=== PATIENT | male | born 1965 | race African-American/Black ===

== ENCOUNTER 2020-07-12 10:47 | Inpatient (IN) | payer OTHER ==
--- NOTE | 2020-07-12 11:01 | BHS.RME ---
Substance Use & Tx History - Substance Use History Alcohol Substance amount: 1 pint vodka and six pack beer Frequency of use: Daily Substance route: Oral Date of Last Use: 07/11/20 Heroin Substance amount: 10 bags Frequency of use: Daily Substance route: Inhalation (ex: sniffing or snorting) Date of Last Use: 07/11/20 Nicotine Substance amount: 1/2 pack Frequency of use: Daily Substance route: Smoking Date of Last Use: 07/12/20 - Last Treatment Date of last treatment: 09/09-11/10/16 Treatment type: Substance Use Disorder (CAROLYN) Where was last treatment: Detox Physical/Psych/Mental Status - Behavior General Behavior: Increased activity (restlessness, agitation) Eye Contact: Normal - Cooperativeness Cooperativeness: Cooperative - Thinking Thought Processes: Tight, Logical, Goal Directed - Physical Health Problems Is patient presently having any pain?: No Does patient presently have any injuries (include location): No Does patient currently have a fever: No Is patient : No CIWA Nausea/Vomitin Muscle Tremors: 4-Moderate,w/Arms Extend Anxiety: 4-Mod. Anxious/Guarded Agitation: 4-Moderately Restless Paroxysmal Sweats: 3 Orientation: 0-Oriented Tacttile Disturbances: 0-None Auditory Disturbances: 0-None Visual Disturbances: 0-None Headache: 0-None Present CIWA-Ar Total Score: 18
[2020-07-12 11:27] VITALS: BMI 22.3
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
[2020-07-12] MEDS ORDERED: ACETAMINOPHEN 325 MG TABLET (FP) PO PRN ×2 (11:59)
[2020-07-12] MEDS ORDERED: ONDANSETRON *ODT* 4 MG TABLET SL PRN (11:59)
[2020-07-12] MEDS ORDERED: BISMUTH SUBSALICYLATE 524 MG/30 ML UD PO PRN (11:59)
[2020-07-12] MEDS ORDERED: MAG HYDROX/AL HYDROX/SIMETH 30 ML UNIT-DOSE CUP PO PRN (11:59)
[2020-07-12] MEDS ORDERED: NICOTINE POLACRILEX 2 MG GUM BUC PRN (11:59)
[2020-07-12] MEDS ORDERED: MAGNESIUM CITRATE 300 ML BOTTLE PO PRN (11:59)
[2020-07-12] MEDS ORDERED: MAGNESIUM HYDROX 2400MG/30ML ORAL SUSPENSION 30 ML CUP PO PRN (11:59)
[2020-07-12] MEDS ORDERED: MENTHOL/PHENOL 1 EACH UD MM PRN (11:59)
[2020-07-12] MEDS ORDERED: chlordiazePOXIDE HCL 25 MG CAPSULE PO PRN (12:01)
[2020-07-12] MEDS: NICOTINE 14 MG/24 HOURS TOPICAL PATCH TD SCH (12:45)
[2020-07-12] MEDS: IBUPROFEN 400 MG TABLET (FP) PO PRN (12:46)
--- NOTE | 2020-07-12 12:49 | EKG ---
Test Reason : Blood Pressure : / mmHG Vent. Rate : 059 BPM Atrial Rate : 059 BPM P-R Int : 136 ms QRS Dur : 088 ms QT Int : 408 ms P-R-T Axes : 075 063 051 degrees QTc Int : 403 ms SINUS BRADYCARDIA OTHERWISE NORMAL ECG NO PREVIOUS ECGS AVAILABLE Confirmed by Remy Alcaraz MD ([id number]) on 07/12/2020 12:48:36 PM Referred By: Confirmed By:Remy Alcaraz MD
[2020-07-12] MEDS ORDERED: METHADONE HCL 10 MG TABLET (FOR DETOX USE ONLY) PO ONE (13:00)
[2020-07-12] MEDS ORDERED: hydrOXYzine PAMOATE 25 MG CAPSULE (FP) PO SCH (14:00)
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
[2020-07-12] MEDS ORDERED: hydrOXYzine PAMOATE 25 MG CAPSULE (FP) PO PRN (15:05)
[2020-07-12 18:00] LABS: ALBUMIN 3.9 g/dl (3.4-5.0); BILIRUBIN,TOTAL 0.9 mg/dL (0.2-1); BLOOD UREA NITROGEN 10.1 mg/dL (7-18); CALCIUM 9.6 mg/dL (8.5-10.1); POTASSIUM 4.6 mmol/L (3.5-5.1); TOT PROT 7.2 g/dl (6.4-8.2)
[2020-07-12 18:01] LABS: HEMATOCRIT 41.9 % (35.4-49); HEMOGLOBIN 13.7 GM/dL (11.7-16.9); MCH 31.6 pg (25.7-33.7); MCHC 32.8 g/dl (32.0-35.9); MEAN CELL VOLUME 96.5 fl (80-96); MEAN PLT VOLUME 9.5 fl (7.5-11.1); PLATELET COUNT 206 K/MM3 (134-434); RBC 4.34 M/mm3 (4.00-5.60); RDW 13.3 % (11.9-15.9); WHITE BLOOD COUNT 5.5 K/mm3 (4.0-10.0)
[2020-07-12] MEDS: chlordiazePOXIDE HCL 25 MG CAPSULE PO SCH ×2 (18:15→22:26)
[2020-07-12] MEDS: THIAMINE HCL 100 MG TABLET (FP) PO SCH (22:26)
[2020-07-12] MEDS: MELATONIN 5 MG TABLETS PO SCH (22:26)
[2020-07-13] MEDS: chlordiazePOXIDE HCL 25 MG CAPSULE PO SCH ×4 (06:19→22:35)
[2020-07-13] MEDS ORDERED: METHADONE HCL 5 MG TABLET (FOR DETOX USE ONLY) ONE (08:40)
[2020-07-13] MEDS ORDERED: METHADONE HCL 10 MG TABLET (FOR DETOX USE ONLY) ONE (08:41)
--- NOTE | 2020-07-13 09:50 | PN ---
[facility] CIWA - CIWA Score Nausea/Vomitin-No Nausea/No Vomiting Muscle Tremors: 3 Anxiety: 2 Agitation: 2 Paroxysmal Sweats: 2 Orientation: 0-Oriented Tacttile Disturbances: 0-None Auditory Disturbances: 0-None Visual Disturbances: 0-None Headache: 0-None Present CIWA-Ar Total Score: 9 B[facility] COWS - Scale Resting Pulse: 0= [place] 80 or Below Sweatin= Chills/Flushing Restless Observation: 1= Difficult to Sit Still Pupil Size: 0= Normal to Room Light Bone or Joint Aches: 1= Mild Discomfort Runny Nose/ Eye Tearin= Nasal Congestion GI Upset > 30mins: 0= None Tremor Observation of Outstretched Hands: 1= Tremor [place], Not Seen Yawning Observation: 1= 1-2x During Session Anxiety or Irritability: 2=Irritable/Anxious Goose Flesh Skin: 3=Piloerection COWS Score: 11 [facility] Progress Note (SOAP) Subjective: sweats shakes chills body aches interrupted sleep agitation irritable Objective: 07/13/20 09:50 Vital Signs Temperature 99.5 F 07/13/20 05:25 Pulse Rate 75 07/13/20 05:25 Respiratory Rate 20 07/13/20 05:25 Blood Pressure 129/69 07/13/20 05:25 O2 Sat by Pulse Oximetry (%) 100 07/13/20 05:25 Laboratory Tests 07/12/20 07/12/20 07/12/20 11:45 11:45 11:45 WBC 5.5 RBC 4.34 Hgb 13.7 Hct 41.9 MCV 96.5 H MCH 31.6 MCHC 32.8 RDW 13.3 Plt Count 206 D MPV 9.5 Sodium 140 Potassium 4.6 Chloride 106 Carbon Dioxide 29 Anion Gap 5 L BUN 10.1 Creatinine 1.0 Est GFR (CKD-EPI)AfAm 97.77 Est GFR (CKD-EPI)NonAf 84.35 Random Glucose 85 Calcium 9.6 Total Bilirubin 0.9 AST 18 ALT 30 Alkaline Phosphatase 88 Total Protein 7.2 Albumin 3.9 Syphilis Serology Non-reactive COVID-19 (ELIAS) 07/12/20 12:30 WBC RBC Hgb Hct MCV MCH MCHC RDW Plt Count MPV Sodium Potassium Chloride Carbon Dioxide Anion Gap BUN Creatinine Est GFR (CKD-EPI)AfAm Est GFR (CKD-EPI)NonAf Random Glucose Calcium Total Bilirubin AST ALT Alkaline Phosphatase Total Protein Albumin Syphilis Serology COVID-19 (ELIAS) Not detected labs noted aaox3 ambulating no acute distress Assessment: 07/13/20 09:50 withdrawals Plan: continue detox
[2020-07-13] MEDS ORDERED: METHADONE (DETOX) 20 MG, METHADONE (DETOX) 5 MG PO ONE (10:00)
[2020-07-13] MEDS: NICOTINE 14 MG/24 HOURS TOPICAL PATCH TD SCH (10:13)
[2020-07-13] MEDS: PRENATAL VITAMINS W/ FOLIC ACID TABLET (FP) PO SCH (10:14)
[2020-07-13] MEDS: cloNIDine HCL 0.1 MG TABLET PO PRN (22:34)
[2020-07-13] MEDS: MELATONIN 5 MG TABLETS PO SCH (23:02)
[2020-07-13] MEDS: THIAMINE HCL 100 MG TABLET (FP) PO SCH (23:02)
[2020-07-14] MEDS: chlordiazePOXIDE HCL 25 MG CAPSULE PO SCH ×4 (07:36→23:45)
[2020-07-14] MEDS ORDERED: METHADONE HCL 10 MG TABLET (FOR DETOX USE ONLY) PO ONE (10:00)
[2020-07-14] MEDS: PRENATAL VITAMINS W/ FOLIC ACID TABLET (FP) PO SCH (10:37)
[2020-07-14] MEDS: cloNIDine HCL 0.1 MG TABLET PO PRN (10:37)
[2020-07-14] MEDS: NICOTINE 14 MG/24 HOURS TOPICAL PATCH TD SCH (10:38)
--- NOTE | 2020-07-14 11:46 | PN ---
[facility] CIWA - CIWA Score Nausea/Vomitin-Mild Nausea/No Vomiting Muscle Tremors: 2 Anxiety: 1-Mildly Anxious Agitation: 1-Slight > Activity Paroxysmal Sweats: 1-Minimal Palms Moist Orientation: 0-Oriented Tacttile Disturbances: 0-None Auditory Disturbances: 0-None Visual Disturbances: 0-None Headache: 1-Very Mild CIWA-Ar Total Score: 7 [facility] COWS - Scale Resting Pulse: 1= [place] 81-100 Sweatin= Chills/Flushing Restless Observation: 1= Difficult to Sit Still Pupil Size: 0= Normal to Room Light Bone or Joint Aches: 1= Mild Discomfort Runny Nose/ Eye Tearin= Nasal Congestion GI Upset > 30mins: 1= Stomach Cramp Tremor Observation of Outstretched Hands: 1= Tremor [place], Not Seen Yawning Observation: 1= 1-2x During Session Anxiety or Irritability: 1=Feels Anxious/Irritable Goose Flesh Skin: 0=Smooth Skin COWS Score: 9 [facility] Progress Note (SOAP) Subjective: pt admitted for dual detox of alcohol and opioids, no complaints today. O: Vital Signs - 24 hr 07/13/20 07/13/20 07/13/20 12:53 16:57 20:54 Temperature 98.4 F 98.2 F 98.4 F Pulse Rate 62 64 69 Respiratory 18 18 18 Rate Blood Pressure 152/85 153/88 163/84 O2 Sat by Pulse 98 98 Oximetry (%) 07/14/20 07/14/20 05:43 08:31 Temperature 99.5 F Pulse Rate 69 67 Respiratory 18 Rate Blood Pressure 172/91 H 154/88 O2 Sat by Pulse 96 Oximetry (%) Laboratory Tests 07/12/20 07/12/20 07/12/20 11:45 11:45 11:45 WBC 5.5 RBC 4.34 Hgb 13.7 Hct 41.9 MCV 96.5 H MCH 31.6 MCHC 32.8 RDW 13.3 Plt Count 206 D MPV 9.5 Sodium 140 Potassium 4.6 Chloride 106 Carbon Dioxide 29 Anion Gap 5 L BUN 10.1 Creatinine 1.0 Est GFR (CKD-EPI)AfAm 97.77 Est GFR (CKD-EPI)NonAf 84.35 Random Glucose 85 Calcium 9.6 Total Bilirubin 0.9 AST 18 ALT 30 Alkaline Phosphatase 88 Total Protein 7.2 Albumin 3.9 Syphilis Serology Non-reactive COVID-19 (ELIAS) 07/12/20 12:30 WBC RBC Hgb Hct MCV MCH MCHC RDW Plt Count MPV Sodium Potassium Chloride Carbon Dioxide Anion Gap BUN Creatinine Est GFR (CKD-EPI)AfAm Est GFR (CKD-EPI)NonAf Random Glucose Calcium Total Bilirubin AST ALT Alkaline Phosphatase Total Protein Albumin Syphilis Serology COVID-19 (ELIAS) Not detected a/p: OUD- methadone detox protocol AUD- alcohol detox protocol pt without complaints. SBP elevated- monitor may be due to withdrawal
[2020-07-14] MEDS: MELATONIN 5 MG TABLETS PO SCH (23:45)
[2020-07-14] MEDS: THIAMINE HCL 100 MG TABLET (FP) PO SCH (23:45)
[2020-07-15] MEDS ORDERED: chlordiazePOXIDE HCL 10 MG CAPSULE PO PRN
[2020-07-15] MEDS: METHOCARBAMOL 500 MG TABLET PO PRN (01:36)
[2020-07-15] MEDS: IBUPROFEN 400 MG TABLET (FP) PO PRN (01:36)
--- NOTE | 2020-07-15 01:44 | PN ---
[facility] Progress Note Note: Patient complained that he cannot sleep Vital Signs Temperature 97.3 F L 07/14/20 20:55 Pulse Rate 61 07/14/20 20:55 Respiratory Rate 16 07/14/20 20:55 Blood Pressure 141/84 07/14/20 20:55 O2 Sat by Pulse Oximetry (%) 96 07/14/20 20:55 Laboratory Last Values WBC 5.5 K/mm3 (4.0-10.0) 07/12/20 11:45 RBC 4.34 M/mm3 (4.00-5.60) 07/12/20 11:45 Hgb 13.7 GM/dL (11.7-16.9) 07/12/20 11:45 Hct 41.9 % (35.4-49) 07/12/20 11:45 MCV 96.5 fl (80-96) H 07/12/20 11:45 MCH 31.6 pg (25.7-33.7) 07/12/20 11:45 MCHC 32.8 g/dl (32.0-35.9) 07/12/20 11:45 RDW 13.3 % (11.9-15.9) 07/12/20 11:45 Plt Count 206 K/MM3 (134-434) D 07/12/20 11:45 MPV 9.5 fl (7.5-11.1) 07/12/20 11:45 Sodium 140 mmol/L (136-145) 07/12/20 11:45 Potassium 4.6 mmol/L (3.5-5.1) 07/12/20 11:45 Chloride 106 mmol/L (98-107) 07/12/20 11:45 Carbon Dioxide 29 mmol/L (21-32) 07/12/20 11:45 Anion Gap 5 MMOL/L (8-16) L 07/12/20 11:45 BUN 10.1 mg/dL (7-18) 07/12/20 11:45 Creatinine 1.0 mg/dL (0.55-1.3) 07/12/20 11:45 Est GFR (CKD-EPI)AfAm 97.77 07/12/20 11:45 Est GFR (CKD-EPI)NonAf 84.35 07/12/20 11:45 Random Glucose 85 mg/dL (74-106) 07/12/20 11:45 Calcium 9.6 mg/dL (8.5-10.1) 07/12/20 11:45 Total Bilirubin 0.9 mg/dL (0.2-1) 07/12/20 11:45 AST 18 U/L (15-37) 07/12/20 11:45 ALT 30 U/L (13-61) 07/12/20 11:45 Alkaline Phosphatase 88 U/L (45-117) 07/12/20 11:45 Total Protein 7.2 g/dl (6.4-8.2) 07/12/20 11:45 Albumin 3.9 g/dl (3.4-5.0) 07/12/20 11:45 Syphilis Serology Non-reactive (NONREACTIVE) 07/12/20 11:45 COVID-19 (ELIAS) Not detected (Not Detected) 07/12/20 12:30 Action: Melatonin 10mg tablet oral ordered
[2020-07-15] MEDS ORDERED: MELATONIN 5 MG TABLETS PO ONE (01:50)
[2020-07-15] MEDS: chlordiazePOXIDE HCL 10 MG CAPSULE PO SCH ×4 (06:49→23:10)
[2020-07-15] MEDS ORDERED: METHADONE (DETOX) 10 MG, METHADONE (DETOX) 5 MG PO ONE (10:00)
[2020-07-15] MEDS ORDERED: METHADONE HCL 5 MG TABLET (FOR DETOX USE ONLY) ONE (10:03)
[2020-07-15] MEDS ORDERED: METHADONE HCL 10 MG TABLET (FOR DETOX USE ONLY) ONE (10:03)
--- NOTE | 2020-07-15 10:57 | PN ---
[facility] CIWA - CIWA Score Nausea/Vomitin-No Nausea/No Vomiting Muscle Tremors: 2 Anxiety: 2 Agitation: 2 Paroxysmal Sweats: 2 Orientation: 0-Oriented Tacttile Disturbances: 0-None Auditory Disturbances: 2-Mild Harshness/Frighten Visual Disturbances: 0-None Headache: 0-None Present CIWA-Ar Total Score: 10 S COWS - Scale Resting Pulse: 0= [place] 80 or Below Sweatin= Chills/Flushing Restless Observation: 1= Difficult to Sit Still Pupil Size: 0= Normal to Room Light Bone or Joint Aches: 2= Severe Diffuse Aches Runny Nose/ Eye Tearin= None GI Upset > 30mins: 0= None Tremor Observation of Outstretched Hands: 2= Slight Tremor Visible Yawning Observation: 0= None Anxiety or Irritability: 2=Irritable/Anxious Goose Flesh Skin: 0=Smooth Skin COWS Score: 8 [facility] Progress Note (SOAP) Subjective: Complaints of sweats,tremors, anxiety, body aches and noise sensitivity. Objective: 07/15/20 10:57 Vital Signs 07/15/20 07/15/20 06:00 09:17 Temperature 98.2 F 97.7 F Pulse Rate 58 L 63 Respiratory 20 18 Rate Blood Pressure 180/90 H 148/77 O2 Sat by Pulse 95 95 Oximetry (%) Laboratory Last Values WBC 5.5 K/mm3 (4.0-10.0) 07/12/20 11:45 RBC 4.34 M/mm3 (4.00-5.60) 07/12/20 11:45 Hgb 13.7 GM/dL (11.7-16.9) 07/12/20 11:45 Hct 41.9 % (35.4-49) 07/12/20 11:45 MCV 96.5 fl (80-96) H 07/12/20 11:45 MCH 31.6 pg (25.7-33.7) 07/12/20 11:45 MCHC 32.8 g/dl (32.0-35.9) 07/12/20 11:45 RDW 13.3 % (11.9-15.9) 07/12/20 11:45 Plt Count 206 K/MM3 (134-434) D 07/12/20 11:45 MPV 9.5 fl (7.5-11.1) 07/12/20 11:45 Sodium 140 mmol/L (136-145) 07/12/20 11:45 Potassium 4.6 mmol/L (3.5-5.1) 07/12/20 11:45 Chloride 106 mmol/L (98-107) 07/12/20 11:45 Carbon Dioxide 29 mmol/L (21-32) 07/12/20 11:45 Anion Gap 5 MMOL/L (8-16) L 07/12/20 11:45 BUN 10.1 mg/dL (7-18) 07/12/20 11:45 Creatinine 1.0 mg/dL (0.55-1.3) 07/12/20 11:45 Est GFR (CKD-EPI)AfAm 97.77 07/12/20 11:45 Est GFR (CKD-EPI)NonAf 84.35 07/12/20 11:45 Random Glucose 85 mg/dL (74-106) 07/12/20 11:45 Calcium 9.6 mg/dL (8.5-10.1) 07/12/20 11:45 Total Bilirubin 0.9 mg/dL (0.2-1) 07/12/20 11:45 AST 18 U/L (15-37) 07/12/20 11:45 ALT 30 U/L (13-61) 07/12/20 11:45 Alkaline Phosphatase 88 U/L (45-117) 07/12/20 11:45 Total Protein 7.2 g/dl (6.4-8.2) 07/12/20 11:45 Albumin 3.9 g/dl (3.4-5.0) 07/12/20 11:45 Syphilis Serology Non-reactive (NONREACTIVE) 07/12/20 11:45 COVID-19 (ELIAS) Not detected (Not Detected) 07/12/20 12:30 Labs noted. Assessment: 07/15/20 10:57 Alert and oriented x 3, in no acute respiratory distress. Full ROM, ambulating in the unit without assistance. Withdrawal symptoms. Plan: Continue detox protocol.
[2020-07-15] MEDS: NICOTINE 14 MG/24 HOURS TOPICAL PATCH TD SCH (14:35)
[2020-07-15] MEDS: PRENATAL VITAMINS W/ FOLIC ACID TABLET (FP) PO SCH (14:36)
[2020-07-15] MEDS: MELATONIN 5 MG TABLETS PO SCH (23:00)
[2020-07-15] MEDS: THIAMINE HCL 100 MG TABLET (FP) PO SCH (23:00)
[2020-07-16] MEDS: chlordiazePOXIDE HCL 10 MG CAPSULE PO SCH ×2 (06:55→18:00)
[2020-07-16] MEDS ORDERED: METHADONE HCL 10 MG TABLET (FOR DETOX USE ONLY) PO ONE (10:00)
[2020-07-16] MEDS: PRENATAL VITAMINS W/ FOLIC ACID TABLET (FP) PO SCH (11:00)
[2020-07-16] MEDS: NICOTINE 14 MG/24 HOURS TOPICAL PATCH TD SCH (11:00)
--- NOTE | 2020-07-16 12:47 | PN ---
[facility] CIWA - CIWA Score Nausea/Vomitin-No Nausea/No Vomiting Muscle Tremors: 2 Anxiety: 2 Agitation: 0-Normal Activity Paroxysmal Sweats: 1-Minimal Palms Moist Orientation: 0-Oriented Tacttile Disturbances: 0-None Auditory Disturbances: 0-None Visual Disturbances: 0-None Headache: 0-None Present CIWA-Ar Total Score: 5 S COWS - Scale Resting Pulse: 1= [place] 81-100 Sweatin= No chills or Flushing Restless Observation: 0= Sits Still Pupil Size: 0= Normal to Room Light Bone or Joint Aches: 1= Mild Discomfort Runny Nose/ Eye Tearin= None GI Upset > 30mins: 0= None Tremor Observation of Outstretched Hands: 2= Slight Tremor Visible Yawning Observation: 0= None Anxiety or Irritability: 1=Feels Anxious/Irritable Goose Flesh Skin: 0=Smooth Skin COWS Score: 5 [facility] Progress Note (SOAP) Subjective: Complaints of mild anxiety, tremors, sweats and irritability. Objective: 07/16/20 12:45 Vital Signs 07/16/20 07/16/20 05:15 09:14 Temperature 98.1 F 98.6 F Pulse Rate 72 116 H Respiratory 16 16 Rate Blood Pressure 139/85 146/99 O2 Sat by Pulse 98 Oximetry (%) Laboratory Last Values WBC 5.5 K/mm3 (4.0-10.0) 07/12/20 11:45 RBC 4.34 M/mm3 (4.00-5.60) 07/12/20 11:45 Hgb 13.7 GM/dL (11.7-16.9) 07/12/20 11:45 Hct 41.9 % (35.4-49) 07/12/20 11:45 MCV 96.5 fl (80-96) H 07/12/20 11:45 MCH 31.6 pg (25.7-33.7) 07/12/20 11:45 MCHC 32.8 g/dl (32.0-35.9) 07/12/20 11:45 RDW 13.3 % (11.9-15.9) 07/12/20 11:45 Plt Count 206 K/MM3 (134-434) D 07/12/20 11:45 MPV 9.5 fl (7.5-11.1) 07/12/20 11:45 Sodium 140 mmol/L (136-145) 07/12/20 11:45 Potassium 4.6 mmol/L (3.5-5.1) 07/12/20 11:45 Chloride 106 mmol/L (98-107) 07/12/20 11:45 Carbon Dioxide 29 mmol/L (21-32) 07/12/20 11:45 Anion Gap 5 MMOL/L (8-16) L 07/12/20 11:45 BUN 10.1 mg/dL (7-18) 07/12/20 11:45 Creatinine 1.0 mg/dL (0.55-1.3) 07/12/20 11:45 Est GFR (CKD-EPI)AfAm 97.77 07/12/20 11:45 Est GFR (CKD-EPI)NonAf 84.35 07/12/20 11:45 Random Glucose 85 mg/dL (74-106) 07/12/20 11:45 Calcium 9.6 mg/dL (8.5-10.1) 07/12/20 11:45 Total Bilirubin 0.9 mg/dL (0.2-1) 07/12/20 11:45 AST 18 U/L (15-37) 07/12/20 11:45 ALT 30 U/L (13-61) 07/12/20 11:45 Alkaline Phosphatase 88 U/L (45-117) 07/12/20 11:45 Total Protein 7.2 g/dl (6.4-8.2) 07/12/20 11:45 Albumin 3.9 g/dl (3.4-5.0) 07/12/20 11:45 Syphilis Serology Non-reactive (NONREACTIVE) 07/12/20 11:45 COVID-19 (ELIAS) Not detected (Not Detected) 07/12/20 12:30 Labs noted. Assessment: 07/16/20 12:45 Patient was seen and examined at bedside. Alert and oriented x 3, in no acute respiratory distress. Full ROM, ambulatory without assistance. Mild withdrawal symptoms. For discharge in AM Plan: Continue detox protocol. Discharge in AM.
[2020-07-16] MEDS: THIAMINE HCL 100 MG TABLET (FP) PO SCH (22:17)
[2020-07-16] MEDS: MELATONIN 5 MG TABLETS PO SCH (22:17)
[2020-07-16] MEDS: METHOCARBAMOL 500 MG TABLET PO PRN (22:26)
[2020-07-16] MEDS: IBUPROFEN 400 MG TABLET (FP) PO PRN (22:27)
[2020-07-17] MEDS ORDERED: chlordiazePOXIDE HCL 10 MG CAPSULE PO ONE (05:00)
[2020-07-17] MEDS ORDERED: METHADONE HCL 5 MG TABLET (FOR DETOX USE ONLY) PO ONE (06:00)
[2020-07-17 09:26] VITALS: BP 111/72; PULSE 73; TEMP 97.5
[2020-07-17] MEDS: PRENATAL VITAMINS W/ FOLIC ACID TABLET (FP) PO SCH (10:08)
[2020-07-17] MEDS: NICOTINE 14 MG/24 HOURS TOPICAL PATCH TD SCH (10:08)
--- NOTE | 2020-07-17 13:18 | DS ---
[facility] Detox Discharge Summary Admission Date: 07/12/20 Discharge Date: 07/17/20 - History Present History: Alcohol Dependence, Opioid Dependence Additional Comments: Pt is medically cleared and discharged to [facility]. Pt completed the detox protocol. Pt is encouraged to follow through with the Rehab protocol which he verbalized understanding. Pt is AOX3 and in no acute respiratory, Full ROM, and ambulatory. Pertinent Past History: h/o alcohol and heroin use disorder. - Physical Exam Results Vital Signs: Vital Signs Temperature 97.5 F L 07/17/20 08:37 Pulse Rate 73 07/17/20 08:37 Respiratory Rate 19 07/17/20 08:37 Blood Pressure 111/72 07/17/20 08:37 O2 Sat by Pulse Oximetry (%) 97 07/16/20 20:56 Vital Signs 07/17/20 07/17/20 05:35 08:37 Temperature 97.7 F 97.5 F L Pulse Rate 72 73 Respiratory 18 19 Rate Blood Pressure 118/73 111/72 Laboratory Last Values WBC 5.5 K/mm3 (4.0-10.0) 07/12/20 11:45 RBC 4.34 M/mm3 (4.00-5.60) 07/12/20 11:45 Hgb 13.7 GM/dL (11.7-16.9) 07/12/20 11:45 Hct 41.9 % (35.4-49) 07/12/20 11:45 MCV 96.5 fl (80-96) H 07/12/20 11:45 MCH 31.6 pg (25.7-33.7) 07/12/20 11:45 MCHC 32.8 g/dl (32.0-35.9) 07/12/20 11:45 RDW 13.3 % (11.9-15.9) 07/12/20 11:45 Plt Count 206 K/MM3 (134-434) D 07/12/20 11:45 MPV 9.5 fl (7.5-11.1) 07/12/20 11:45 Sodium 140 mmol/L (136-145) 07/12/20 11:45 Potassium 4.6 mmol/L (3.5-5.1) 07/12/20 11:45 Chloride 106 mmol/L (98-107) 07/12/20 11:45 Carbon Dioxide 29 mmol/L (21-32) 07/12/20 11:45 Anion Gap 5 MMOL/L (8-16) L 07/12/20 11:45 BUN 10.1 mg/dL (7-18) 07/12/20 11:45 Creatinine 1.0 mg/dL (0.55-1.3) 07/12/20 11:45 Est GFR (CKD-EPI)AfAm 97.77 07/12/20 11:45 Est GFR (CKD-EPI)NonAf 84.35 07/12/20 11:45 Random Glucose 85 mg/dL (74-106) 07/12/20 11:45 Calcium 9.6 mg/dL (8.5-10.1) 07/12/20 11:45 Total Bilirubin 0.9 mg/dL (0.2-1) 07/12/20 11:45 AST 18 U/L (15-37) 07/12/20 11:45 ALT 30 U/L (13-61) 07/12/20 11:45 Alkaline Phosphatase 88 U/L (45-117) 07/12/20 11:45 Total Protein 7.2 g/dl (6.4-8.2) 07/12/20 11:45 Albumin 3.9 g/dl (3.4-5.0) 07/12/20 11:45 Syphilis Serology Non-reactive (NONREACTIVE) 07/12/20 11:45 COVID-19 (ELIAS) Not detected (Not Detected) 07/12/20 12:30 Labs noted. Pertinent Admission Physical Exam Findings: withdrawal symptoms. - Treatment Hospital Course: Detox Protocol Followed, Detoxed Safely, Responded well, Discharged Condition Good, Rehab Referral Accepted Patient has Accepted a Rehab Referral to: [facility] - Medication Discharge Medications: Ambulatory Orders NK [No Known Home Medication] 07/29/14 - Diagnosis (1) Alcohol dependence with uncomplicated withdrawal Current Visit: Yes Status: Acute (2) Opioid dependence with withdrawal Current Visit: Yes Status: Acute (3) Alcohol dependence Current Visit: No Status: Acute (4) Opioid dependence Current Visit: No Status: Acute (5) Nicotine dependence Current Visit: No Status: Chronic Qualifiers: Nicotine product type: cigarettes Substance use status: uncomplicated Qualified Code(s): F17.210 - Nicotine dependence, cigarettes, uncomplicated - AMA Did Patient Leave Against Medical Advice: No
== END 2020-07-17 13:07 | disposition other institution (70) | DRG 773 ==
LOC: YASAS 10:47 → Y6N 11:28
PROVIDERS: ADMIT Allergy & Immunology; ATTEND Allergy & Immunology
PROC: HZ2ZZZZ Detoxification Services for Substance Abuse Treatment (ICD-10-PCS; principal; 2020-07-12)
DX: F10.230 Alcohol dependence with withdrawal, uncomplicated (principal); F11.23 Opioid dependence with withdrawal; F14.20 Cocaine dependence, uncomplicated; F17.210 Nicotine dependence, cigarettes, uncomplicated; F19.282 Other psychoactive substance dependence with psychoactive substance-induced sleep disorder; F32.9 Major depressive disorder, single episode, unspecified; Z86.19 Personal history of other infectious and parasitic diseases; Z98.890 Other specified postprocedural states; Z87.828 Personal history of other (healed) physical injury and trauma; Z91.018 Allergy to other foods; Z56.0 Unemployment, unspecified; Z59.0 Homelessness
CPT/HCPCS: 36415; 71046-TC-FY; 80053; 85027; 86780; 93005; 93010; J0735; Q0162; U0003

== ENCOUNTER 2020-07-17 13:18 | Inpatient (IN) | payer OTHER ==
--- NOTE | 2020-07-17 13:28 | DS ---
[facility] Rehab Discharge Summary - [facility] Rehab Discharge Summary Admission Date: 07/17/20 Discharge Date: 07/17/20 - Medication Discharge Medications: Ambulatory Orders NK [No Known Home Medication] 07/29/14 - Discharge Instructions Diet, activity, other medical instructions: Diet: Activity: Other medical instructions:
[2020-07-17] MEDS ORDERED: IBUPROFEN 400 MG TABLET (FP) PO PRN (13:30)
[2020-07-17] MEDS ORDERED: NICOTINE POLACRILEX 2 MG GUM BUC PRN (13:30)
[2020-07-17] MEDS ORDERED: LOPERAMIDE HCL 2 MG CAPSULE PO PRN (13:30)
[2020-07-17] MEDS ORDERED: MENTHOL/PHENOL 1 EACH UD MM PRN (13:30)
[2020-07-17] MEDS ORDERED: MAGNESIUM CITRATE 300 ML BOTTLE PO PRN (13:30)
[2020-07-17] MEDS ORDERED: P-EPHED 60MG/TRIPROLIDI 2.5MG TABLET PO PRN (13:30)
[2020-07-17] MEDS ORDERED: MAG HYDROX/AL HYDROX/SIMETH 30 ML UNIT-DOSE CUP PO PRN (13:30)
[2020-07-17] MEDS ORDERED: MAGNESIUM HYDROX 2400MG/30ML ORAL SUSPENSION 30 ML CUP PO PRN (13:30)
[2020-07-17] MEDS ORDERED: ACETAMINOPHEN 325 MG TABLET (FP) PO PRN (13:30)
[2020-07-17] MEDS ORDERED: guaiFENesin 200 MG/10 ML 10 ML UNIT-DOSE CUPS PO PRN (13:30)
--- NOTE | 2020-07-17 13:30 | HP ---
[facility] Rehab Assess/Revision - Admission History Admitted to Rehab from: [facility] [place] Date of Admission to Rehab: 07/17/2020 - Findings Detox History & Physical reviewed: Yes Concur with findings: Yes Inpatient Rehab Admission - Rehab Decision to Admit Inpatient rehab admission?: Yes - Initial Determination Are CD services needed?: Yes Free of communicable disease: Yes Not in need of hospitalization: Yes - Rehab Admission Criteria Previous failed treatment: Yes Poor recovery environment: Yes Comorbidities: No Lacks judgement: No Patient is meeting Inpatient Rehab admission criteria:: Yes
[2020-07-17] MEDS: THIAMINE HCL 100 MG TABLET (FP) PO SCH (21:21)
[2020-07-17] MEDS: MELATONIN 5 MG TABLETS PO SCH (21:21)
[2020-07-18] MEDS: hydrOXYzine PAMOATE 25 MG CAPSULE (FP) PO PRN ×2 (01:41→21:07)
[2020-07-18] MEDS: PRENATAL VITAMINS W/ FOLIC ACID TABLET (FP) PO SCH (09:35)
[2020-07-18] MEDS: NICOTINE 14 MG/24 HOURS TOPICAL PATCH TD SCH (09:36)
[2020-07-18] MEDS: MELATONIN 5 MG TABLETS PO SCH (21:05)
[2020-07-18] MEDS: THIAMINE HCL 100 MG TABLET (FP) PO SCH (21:05)
[2020-07-19 06:40] VITALS: BP 121/77; PULSE 66; TEMP 98
[2020-07-19] MEDS ORDERED: METHOCARBAMOL 500 MG TABLET PO SCH (10:00)
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
[2020-07-19] MEDS: PRENATAL VITAMINS W/ FOLIC ACID TABLET (FP) PO SCH (10:25)
[2020-07-19] MEDS: NICOTINE 14 MG/24 HOURS TOPICAL PATCH TD SCH (10:25)
== END 2020-07-19 10:00 | disposition home or self-care (01) | DRG 772 ==
LOC: YASAS 13:18 → Y3W 13:19
PROVIDERS: ADMIT Allergy & Immunology; ATTEND Allergy & Immunology
PROC: HZ42ZZZ Group Counseling for Substance Abuse Treatment, Cognitive-Behavioral (ICD-10-PCS; principal; 2020-07-17)
DX: F10.20 Alcohol dependence, uncomplicated (principal); F11.20 Opioid dependence, uncomplicated; F14.20 Cocaine dependence, uncomplicated; F32.9 Major depressive disorder, single episode, unspecified; Z87.828 Personal history of other (healed) physical injury and trauma; Z91.018 Allergy to other foods; Z59.0 Homelessness

== ENCOUNTER 2023-04-20 08:21 | Inpatient (IN) | payer OTHER ==
[2023-04-20 09:14] VITALS: BMI 25.1
[2023-04-20] MEDS ORDERED: IBUPROFEN 600 MG TABLET (FP) PO PRN (09:44)
[2023-04-20] MEDS ORDERED: NALOXONE HCL 0.4 MG/ML VIAL IM PRN (09:44)
[2023-04-20] MEDS ORDERED: MELATONIN 5 MG TABLETS PO PRN (09:44)
[2023-04-20] MEDS ORDERED: P-EPHED 60MG/TRIPROLIDI 2.5MG TABLET PO PRN (09:44)
[2023-04-20] MEDS ORDERED: MAG HYDROX/AL HYDROX/SIMETH 30 ML UNIT-DOSE CUP PO PRN (09:44)
[2023-04-20] MEDS ORDERED: DICYCLOMINE HCL 10 MG CAPSULE PO PRN (09:44)
[2023-04-20] MEDS ORDERED: MAGNESIUM HYDROX 2400MG/30ML ORAL SUSPENSION 30 ML CUP PO PRN (09:44)
[2023-04-20] MEDS ORDERED: BENZOCAINE/MENTHOL (CHLORASEPTIC ) LOZENGE MM PRN (09:44)
[2023-04-20] MEDS ORDERED: BENZONATATE 200 MG CAPSULE PO PRN (09:44)
[2023-04-20] MEDS ORDERED: BISMUTH SUBSALICYLATE 524 MG/30 ML PO PRN (09:44)
[2023-04-20] MEDS ORDERED: guaiFENesin 600 MG TABLET.ER (FP) PO PRN (09:44)
[2023-04-20] MEDS ORDERED: METHOCARBAMOL 500 MG TABLET PO PRN (09:44)
[2023-04-20] MEDS ORDERED: ONDANSETRON *ODT* 4 MG TABLET SL PRN (09:44)
[2023-04-20] MEDS ORDERED: NICOTINE 7 MG/24 HOURS TOPICAL PATCH TD PRN (09:44)
[2023-04-20] MEDS ORDERED: LOPERAMIDE HCL 2 MG CAPSULE PO PRN (09:44)
[2023-04-20] MEDS ORDERED: ACETAMINOPHEN 325 MG TABLET (FP) PO PRN (09:44)
[2023-04-20] MEDS ORDERED: IBUPROFEN 400 MG TABLET (FP) PO PRN (09:44)
[2023-04-20] MEDS ORDERED: NICOTINE POLACRILEX 2 MG GUM BUC PRN (09:44)
[2023-04-20] MEDS ORDERED: NALOXONE HCL (KLOXXADO) 8 MG SPRAY NS PRN (09:44)
[2023-04-20] MEDS ORDERED: hydrOXYzine PAMOATE 25 MG CAPSULE (FP) PO PRN (09:44)
[2023-04-20] MEDS ORDERED: POLYETHYLENE GLYCOL (HEALTHYLAX) 3350 17 GM PACKET PO PRN (09:44)
[2023-04-20] MEDS: PRENATAL VITAMINS W/ FOLIC ACID TABLET (FP) PO SCH (10:58)
[2023-04-20] MEDS: VITAMINS A AND D TOPICAL OINTMENT 60 GM TUBE TP SCH ×2 (15:02→19:59)
[2023-04-20] MEDS: THIAMINE HCL 100 MG TABLET (FP) PO SCH (22:15)
[2023-04-21] MEDS: VITAMINS A AND D TOPICAL OINTMENT 60 GM TUBE TP SCH ×5 (04:23→23:27)
[2023-04-21] MEDS: PRENATAL VITAMINS W/ FOLIC ACID TABLET (FP) PO SCH (10:09)
[2023-04-21] MEDS ORDERED: amLODIPine BESYLATE 5 MG TABLET (FP) PO SCH (12:30)
[2023-04-21] MEDS: THIAMINE HCL 100 MG TABLET (FP) PO SCH (22:49)
[2023-04-22 06:34] VITALS: RESP 18
[2023-04-22] MEDS: VITAMINS A AND D TOPICAL OINTMENT 60 GM TUBE TP SCH (07:50)
[2023-04-22 09:09] VITALS: BP 152/94; PULSE 97; TEMP 98.9
[2023-04-22] MEDS ORDERED: amLODIPine BESYLATE 10 MG TABLET (FP) PO SCH (10:00)
== END 2023-04-22 10:01 | disposition other institution (70) | DRG 773 ==
LOC: YASAS 08:21 → Y6N 10:01
PROVIDERS: ADMIT Allergy & Immunology; ATTEND Surgery
PROC: HZ2ZZZZ Detoxification Services for Substance Abuse Treatment (ICD-10-PCS; principal; 2023-04-20)
DX: F11.23 Opioid dependence with withdrawal (principal); F10.230 Alcohol dependence with withdrawal, uncomplicated; F14.20 Cocaine dependence, uncomplicated; F12.20 Cannabis dependence, uncomplicated; F17.210 Nicotine dependence, cigarettes, uncomplicated; F19.282 Other psychoactive substance dependence with psychoactive substance-induced sleep disorder; I10 Essential (primary) hypertension; Z28.310 Unvaccinated for COVID-19; Z28.9 Immunization not carried out for unspecified reason
CPT/HCPCS: 87811; C9803-CS; U0003; U0005

== ENCOUNTER 2023-07-10 15:42 | Inpatient (IN) | payer OTHER ==
[2023-07-10 17:11] VITALS: BMI 23.3
[2023-07-10] MEDS ORDERED: BENZONATATE 200 MG CAPSULE PO PRN (18:50)
[2023-07-10] MEDS ORDERED: P-EPHED 60MG/TRIPROLIDI 2.5MG TABLET PO PRN (18:50)
[2023-07-10] MEDS ORDERED: ACETAMINOPHEN 325 MG TABLET (FP) PO PRN (18:50)
[2023-07-10] MEDS ORDERED: DICYCLOMINE HCL 10 MG CAPSULE PO PRN (18:50)
[2023-07-10] MEDS ORDERED: NALOXONE HCL (KLOXXADO) 8 MG SPRAY NS PRN (18:50)
[2023-07-10] MEDS ORDERED: LOPERAMIDE HCL 2 MG CAPSULE PO PRN (18:50)
[2023-07-10] MEDS ORDERED: hydrOXYzine PAMOATE 25 MG CAPSULE (FP) PO PRN (18:50)
[2023-07-10] MEDS ORDERED: BENZOCAINE/MENTHOL (CHLORASEPTIC ) LOZENGE MM PRN (18:50)
[2023-07-10] MEDS ORDERED: POLYETHYLENE GLYCOL (HEALTHYLAX) 3350 17 GM PACKET PO PRN (18:50)
[2023-07-10] MEDS ORDERED: BISMUTH SUBSALICYLATE 524 MG/30 ML PO PRN (18:50)
[2023-07-10] MEDS ORDERED: NICOTINE POLACRILEX 2 MG GUM BUC PRN (18:50)
[2023-07-10] MEDS ORDERED: MAG HYDROX/AL HYDROX/SIMETH 30 ML UNIT-DOSE CUP PO PRN (18:50)
[2023-07-10] MEDS ORDERED: guaiFENesin 600 MG TABLET.ER (FP) PO PRN (18:50)
[2023-07-10] MEDS ORDERED: IBUPROFEN 400 MG TABLET (FP) PO PRN (18:50)
[2023-07-10] MEDS ORDERED: IBUPROFEN 600 MG TABLET (FP) PO PRN (18:50)
[2023-07-10] MEDS ORDERED: MAGNESIUM HYDROX 2400MG/30ML ORAL SUSPENSION 30 ML CUP PO PRN (18:50)
[2023-07-10] MEDS ORDERED: NALOXONE HCL 0.4 MG/ML VIAL IM PRN (18:50)
[2023-07-10] MEDS ORDERED: ONDANSETRON *ODT* 4 MG TABLET SL PRN (18:50)
[2023-07-10] MEDS: THIAMINE HCL 100 MG TABLET (FP) PO SCH (22:50)
[2023-07-10] MEDS: MELATONIN 5 MG TABLETS PO SCH (22:52)
[2023-07-11] MEDS ORDERED: methaDONE HCL 10 MG TABLET (FOR DETOX USE ONLY) PO ONE ×2 (09:02→10:00)
[2023-07-11] MEDS ORDERED: diazePAM 5 MG TABLET PO PRN (09:03)
[2023-07-11] MEDS: amLODIPine BESYLATE 10 MG TABLET (FP) PO SCH (10:33)
[2023-07-11] MEDS: PRENATAL VITAMINS W/ FOLIC ACID TABLET (FP) PO SCH (10:33)
[2023-07-11] MEDS: diazePAM 5 MG TABLET PO SCH ×3 (10:34→23:10)
[2023-07-11 15:18] LABS: POTASSIUM 4.3 mmol/L (3.5-5.1)
[2023-07-11 15:20] LABS: CALCIUM 8.7 mg/dL (8.5-10.1)
[2023-07-11 15:21] LABS: ALBUMIN 3.3 g/dl (3.4-5.0); BLOOD UREA NITROGEN 9.5 mg/dL (7-18)
[2023-07-11 15:22] LABS: HEMATOCRIT 40.5 % (35.4-49); HEMOGLOBIN 13.7 GM/dL (11.7-16.9); MCH 31.7 pg (25.7-33.7); MCHC 33.7 g/dl (32.0-35.9); MEAN CELL VOLUME 93.9 fl (80-96); MEAN PLT VOLUME 9.1 fl (7.5-11.1); PLATELET COUNT 193 10^3/uL (134-434); RBC 4.31 M/mm3 (4.00-5.60); RDW 13.1 % (11.9-15.9); WHITE BLOOD COUNT 6.4 K/mm3 (4.0-10.0)
[2023-07-11 15:25] LABS: BILIRUBIN,TOTAL 0.5 mg/dL (0.2-1); TOT PROT 6.2 g/dl (6.4-8.2)
[2023-07-11] MEDS: cloNIDine HCL 0.1 MG TABLET PO PRN ×2 (17:47→23:07)
[2023-07-11] MEDS: MELATONIN 5 MG TABLETS PO SCH (23:07)
[2023-07-11] MEDS: THIAMINE HCL 100 MG TABLET (FP) PO SCH (23:09)
[2023-07-11] MEDS: METHOCARBAMOL 500 MG TABLET PO PRN (23:09)
[2023-07-12] MEDS: diazePAM 5 MG TABLET PO SCH ×4 (05:58→22:50)
[2023-07-12] MEDS: PRENATAL VITAMINS W/ FOLIC ACID TABLET (FP) PO SCH (10:36)
[2023-07-12] MEDS: amLODIPine BESYLATE 10 MG TABLET (FP) PO SCH (10:36)
[2023-07-12] MEDS: MELATONIN 5 MG TABLETS PO SCH (22:50)
[2023-07-12] MEDS: cloNIDine HCL 0.1 MG TABLET PO PRN (22:50)
[2023-07-12] MEDS: THIAMINE HCL 100 MG TABLET (FP) PO SCH (22:50)
[2023-07-13] MEDS: diazePAM 5 MG TABLET PO SCH ×3 (06:09→22:14)
[2023-07-13] MEDS ORDERED: methaDONE HCL 10 MG TABLET (FOR DETOX USE ONLY) PO ONE (10:00)
[2023-07-13] MEDS: PRENATAL VITAMINS W/ FOLIC ACID TABLET (FP) PO SCH (10:25)
[2023-07-13] MEDS: cloNIDine HCL 0.1 MG TABLET PO PRN (10:26)
[2023-07-13] MEDS: amLODIPine BESYLATE 10 MG TABLET (FP) PO SCH (10:27)
[2023-07-13] MEDS: METHOCARBAMOL 500 MG TABLET PO PRN (10:28)
[2023-07-13] MEDS: THIAMINE HCL 100 MG TABLET (FP) PO SCH (21:19)
[2023-07-13] MEDS: MELATONIN 5 MG TABLETS PO SCH (21:19)
[2023-07-13 21:44] VITALS: RESP 18
[2023-07-14] MEDS: diazePAM 5 MG TABLET PO SCH ×2 (05:57→18:12)
[2023-07-14] MEDS: PRENATAL VITAMINS W/ FOLIC ACID TABLET (FP) PO SCH (10:07)
[2023-07-14] MEDS: amLODIPine BESYLATE 10 MG TABLET (FP) PO SCH (10:08)
[2023-07-14] MEDS: THIAMINE HCL 100 MG TABLET (FP) PO SCH (22:20)
[2023-07-14] MEDS: MELATONIN 5 MG TABLETS PO SCH (22:20)
[2023-07-15] MEDS ORDERED: diazePAM 5 MG TABLET PO ONE (06:00)
[2023-07-15] MEDS ORDERED: methaDONE HCL 10 MG TABLET (FOR DETOX USE ONLY) PO ONE (10:00)
[2023-07-15] MEDS: PRENATAL VITAMINS W/ FOLIC ACID TABLET (FP) PO SCH (10:04)
[2023-07-15] MEDS: amLODIPine BESYLATE 10 MG TABLET (FP) PO SCH (10:04)
[2023-07-15] MEDS: MELATONIN 5 MG TABLETS PO SCH (22:24)
[2023-07-15] MEDS: THIAMINE HCL 100 MG TABLET (FP) PO SCH (22:24)
[2023-07-16 09:17] VITALS: BP 135/65; PULSE 74; TEMP 98.7
[2023-07-16] MEDS: PRENATAL VITAMINS W/ FOLIC ACID TABLET (FP) PO SCH (10:28)
[2023-07-16] MEDS: amLODIPine BESYLATE 10 MG TABLET (FP) PO SCH (10:28)
== END 2023-07-16 10:58 | disposition other institution (70) | DRG 773 ==
LOC: YASAS 15:42 → Y3N 18:34
PROVIDERS: ADMIT Allergy & Immunology; ATTEND Allergy & Immunology
PROC: HZ2ZZZZ Detoxification Services for Substance Abuse Treatment (ICD-10-PCS; principal; 2023-07-10)
DX: F11.23 Opioid dependence with withdrawal (principal); F10.230 Alcohol dependence with withdrawal, uncomplicated; F14.20 Cocaine dependence, uncomplicated; F12.20 Cannabis dependence, uncomplicated; F17.210 Nicotine dependence, cigarettes, uncomplicated; I10 Essential (primary) hypertension; Z28.310 Unvaccinated for COVID-19; Z28.9 Immunization not carried out for unspecified reason
CPT/HCPCS: 36415; 80053; 85027; 86780; 87635; 87811

== ENCOUNTER 2023-11-22 08:10 | Inpatient (IN) | payer OTHER ==
[2023-11-22 09:25] VITALS: BMI 23.1
[2023-11-22] MEDS ORDERED: BISMUTH SUBSALICYLATE 524 MG/30 ML PO PRN (10:28)
[2023-11-22] MEDS ORDERED: NALOXONE HCL 0.4 MG/ML VIAL IM PRN (10:28)
[2023-11-22] MEDS ORDERED: DICYCLOMINE HCL 10 MG CAPSULE PO PRN (10:28)
[2023-11-22] MEDS ORDERED: BENZOCAINE/MENTHOL (CHLORASEPTIC ) LOZENGE MM PRN (10:28)
[2023-11-22] MEDS ORDERED: methaDONE HCL 10 MG TABLET (FOR DETOX USE ONLY) PO ONE (10:28)
[2023-11-22] MEDS ORDERED: NALOXONE HCL (KLOXXADO) 8 MG SPRAY NS PRN (10:28)
[2023-11-22] MEDS ORDERED: IBUPROFEN 400 MG TABLET (FP) PO PRN (10:28)
[2023-11-22] MEDS ORDERED: ACETAMINOPHEN 325 MG TABLET (FP) PO PRN (10:28)
[2023-11-22] MEDS ORDERED: clonazePAM 0.5 MG ODT TABLETS SL PRN (10:28)
[2023-11-22] MEDS ORDERED: guaiFENesin 600 MG TABLET.ER (FP) PO PRN (10:28)
[2023-11-22] MEDS ORDERED: LOPERAMIDE HCL 2 MG CAPSULE PO PRN (10:28)
[2023-11-22] MEDS ORDERED: MAG HYDROX/AL HYDROX/SIMETH 30 ML UNIT-DOSE CUP PO PRN (10:28)
[2023-11-22] MEDS ORDERED: NICOTINE 21 MG/24 HOURS TOPICAL PATCH TD PRN (10:28)
[2023-11-22] MEDS ORDERED: MAGNESIUM HYDROX 2400MG/30ML ORAL SUSPENSION 30 ML CUP PO PRN (10:28)
[2023-11-22] MEDS ORDERED: BENZONATATE 200 MG CAPSULE PO PRN (10:28)
[2023-11-22] MEDS ORDERED: POLYETHYLENE GLYCOL (HEALTHYLAX) 3350 17 GM PACKET PO PRN (10:28)
[2023-11-22] MEDS ORDERED: ONDANSETRON *ODT* 4 MG TABLET SL PRN (10:28)
[2023-11-22] MEDS ORDERED: AMMONIUM LACTATE 12% LOTION 225 GM BOTTLE TP PRN (10:35)
[2023-11-22] MEDS ORDERED: IBUPROFEN 600 MG TABLET (FP) PO ONE (11:21)
[2023-11-22] MEDS ORDERED: methaDONE HCL 10 MG TABLET (FOR DETOX USE ONLY) ONE (11:21)
[2023-11-22] MEDS: IBUPROFEN 600 MG TABLET (FP) PO PRN (11:26)
[2023-11-22] MEDS: TRIAMCINOLONE ACET 0.025% CREAM 15 GM TUBE TP SCH ×2 (13:49→23:00)
[2023-11-22] MEDS: cloNIDine HCL 0.1 MG TABLET PO PRN (16:10)
[2023-11-22] MEDS: diazePAM 5 MG TABLET PO PRN (16:52)
[2023-11-22] MEDS: METHOCARBAMOL 500 MG TABLET PO PRN (16:54)
[2023-11-22] MEDS: THIAMINE HCL 100 MG TABLET (FP) PO SCH (22:59)
[2023-11-22] MEDS: MELATONIN 5 MG TABLETS PO SCH (22:59)
[2023-11-23] MEDS: METHOCARBAMOL 500 MG TABLET PO PRN (10:15)
[2023-11-23] MEDS: PRENATAL VITAMINS W/ FOLIC ACID TABLET (FP) PO SCH (10:17)
[2023-11-23] MEDS: TRIAMCINOLONE ACET 0.025% CREAM 15 GM TUBE TP SCH ×2 (10:19→23:23)
[2023-11-23 11:41] LABS: HEMATOCRIT 35.6 % (35.4-49); HEMOGLOBIN 12.2 GM/dL (11.7-16.9); MCH 31.8 pg (25.7-33.7); MCHC 34.2 g/dl (32.0-35.9); MEAN PLT VOLUME 9.1 fl (7.5-11.1); PLATELET COUNT 145 10^3/uL (134-434); RBC 3.83 M/mm3 (4.00-5.60); RDW 13.3 % (11.9-15.9); WHITE BLOOD COUNT 4.2 K/mm3 (4.0-10.0)
[2023-11-23 12:11] LABS: CHLORIDE 111 mmol/L (98-107); POTASSIUM 4.2 mmol/L (3.5-5.1); SODIUM 142 mmol/L (136-145)
[2023-11-23 12:38] LABS: CALCIUM 8.6 mg/dL (8.5-10.1)
[2023-11-23 12:39] LABS: ANION GAP 3 mmol/L (4-13); BLOOD UREA NITROGEN 16.4 mg/dL (7-18); CO2 28 mmol/L (21-32); GLUCOSE,RANDOM 89 mg/dL (74-106)
[2023-11-23 12:42] LABS: SGOT/AST 18 U/L (15-37); SGPT/ALT 25 U/L (13-61)
[2023-11-23 12:43] LABS: BILIRUBIN,TOTAL 0.3 mg/dL (0.2-1); TOT PROT 5.6 g/dl (6.4-8.2)
[2023-11-23 12:45] LABS: ALK PHOS 66 U/L (45-117)
[2023-11-23] MEDS: THIAMINE HCL 100 MG TABLET (FP) PO SCH (23:23)
[2023-11-23] MEDS: MELATONIN 5 MG TABLETS PO SCH (23:23)
[2023-11-24] MEDS: cloNIDine HCL 0.1 MG TABLET PO PRN ×3 (07:14→22:29)
[2023-11-24] MEDS: METHOCARBAMOL 500 MG TABLET PO PRN ×2 (09:38→15:35)
[2023-11-24] MEDS: diazePAM 5 MG TABLET PO PRN ×3 (09:39→22:29)
[2023-11-24] MEDS: TRIAMCINOLONE ACET 0.025% CREAM 15 GM TUBE TP SCH ×2 (09:41→22:34)
[2023-11-24] MEDS: PRENATAL VITAMINS W/ FOLIC ACID TABLET (FP) PO SCH (09:42)
[2023-11-24] MEDS ORDERED: SALICYLIC ACID (WART REMOVER) 9 ML LIQUID TP SCH (10:00)
[2023-11-24] MEDS ORDERED: methaDONE HCL 10 MG TABLET (FOR DETOX USE ONLY) PO ONE (10:00)
[2023-11-24] MEDS: THIAMINE HCL 100 MG TABLET (FP) PO SCH (22:29)
[2023-11-24] MEDS: MELATONIN 5 MG TABLETS PO SCH (22:29)
[2023-11-24] MEDS: IBUPROFEN 600 MG TABLET (FP) PO PRN (22:32)
[2023-11-25] MEDS ORDERED: cloNIDine HCL 0.1 MG TABLET PO ONE (06:00)
[2023-11-25] MEDS: SALICYLIC ACID (WART REMOVER) 9 ML LIQUID TP SCH ×2 (08:35→10:15)
[2023-11-25] MEDS: TRIAMCINOLONE ACET 0.025% CREAM 15 GM TUBE TP SCH ×2 (09:43→22:21)
[2023-11-25] MEDS: PRENATAL VITAMINS W/ FOLIC ACID TABLET (FP) PO SCH (09:44)
[2023-11-25] MEDS: HYDROCHLOROTHIAZIDE 25 MG TABLET (FP) PO SCH (09:44)
[2023-11-25] MEDS: amLODIPine BESYLATE 10 MG TABLET (FP) PO SCH (09:45)
[2023-11-25] MEDS: cloNIDine HCL 0.1 MG TABLET PO PRN ×2 (15:11→22:20)
[2023-11-25] MEDS ORDERED: LISINOPRIL 5 MG TABLET PO ONE (15:30)
[2023-11-25] MEDS: MELATONIN 5 MG TABLETS PO SCH (22:19)
[2023-11-25] MEDS: METHOCARBAMOL 500 MG TABLET PO PRN (22:19)
[2023-11-25] MEDS: IBUPROFEN 600 MG TABLET (FP) PO PRN (22:20)
[2023-11-25] MEDS: THIAMINE HCL 100 MG TABLET (FP) PO SCH (22:20)
[2023-11-26] MEDS ORDERED: methaDONE HCL 10 MG TABLET (FOR DETOX USE ONLY) PO ONE (10:00)
[2023-11-26] MEDS: amLODIPine BESYLATE 10 MG TABLET (FP) PO SCH (10:36)
[2023-11-26] MEDS: METHOCARBAMOL 500 MG TABLET PO PRN (10:36)
[2023-11-26] MEDS: LISINOPRIL 5 MG TABLET PO SCH (10:36)
[2023-11-26] MEDS: IBUPROFEN 600 MG TABLET (FP) PO PRN ×2 (10:36→22:28)
[2023-11-26] MEDS: HYDROCHLOROTHIAZIDE 25 MG TABLET (FP) PO SCH (10:36)
[2023-11-26] MEDS: PRENATAL VITAMINS W/ FOLIC ACID TABLET (FP) PO SCH (10:36)
[2023-11-26] MEDS: SALICYLIC ACID (WART REMOVER) 9 ML LIQUID TP SCH (10:38)
[2023-11-26] MEDS: TRIAMCINOLONE ACET 0.025% CREAM 15 GM TUBE TP SCH ×2 (11:53→22:26)
[2023-11-26] MEDS: MELATONIN 5 MG TABLETS PO SCH (22:28)
[2023-11-26] MEDS: cloNIDine HCL 0.1 MG TABLET PO PRN (22:28)
[2023-11-26] MEDS: THIAMINE HCL 100 MG TABLET (FP) PO SCH (22:28)
[2023-11-27 09:40] VITALS: BP 115/74; PULSE 102; RESP 17; TEMP 97.3
[2023-11-27] MEDS: TRIAMCINOLONE ACET 0.025% CREAM 15 GM TUBE TP SCH (10:01)
[2023-11-27] MEDS: amLODIPine BESYLATE 10 MG TABLET (FP) PO SCH (10:02)
[2023-11-27] MEDS: HYDROCHLOROTHIAZIDE 25 MG TABLET (FP) PO SCH (10:02)
[2023-11-27] MEDS: PRENATAL VITAMINS W/ FOLIC ACID TABLET (FP) PO SCH (10:03)
[2023-11-27] MEDS: LISINOPRIL 5 MG TABLET PO SCH (10:03)
[2023-11-27] MEDS: SALICYLIC ACID (WART REMOVER) 9 ML LIQUID TP SCH (10:03)
== END 2023-11-27 10:43 | disposition home or self-care (01) | DRG 773 ==
LOC: YASAS 08:10 → Y6N 10:59
PROVIDERS: ADMIT Allergy & Immunology; ATTEND Surgery
PROC: HZ2ZZZZ Detoxification Services for Substance Abuse Treatment (ICD-10-PCS; principal; 2023-11-22)
DX: F11.23 Opioid dependence with withdrawal (principal); F10.230 Alcohol dependence with withdrawal, uncomplicated; F14.10 Cocaine abuse, uncomplicated; F12.20 Cannabis dependence, uncomplicated; F17.210 Nicotine dependence, cigarettes, uncomplicated; I10 Essential (primary) hypertension; L84 Corns and callosities; L30.9 Dermatitis, unspecified; M16.12 Unilateral primary osteoarthritis, left hip; M54.50 Low back pain, unspecified; G89.29 Other chronic pain; Z86.11 Personal history of tuberculosis
CPT/HCPCS: 36415; 71046-TC-FY; 80053; 80307; 85027; 86780; 87635; 87811; 93005; 93010